=== PATIENT | male | born 2000 ===

== ENCOUNTER 2022-10-25 17:22 | Emergency (ER) | payer MEDICAID ==
[~2022-10-25] VITALS: Ht 180.3 cm; Wt 154.6 kg
[2022-10-25] MEDS ORDERED: INHALER IH (17:33)
[2022-10-25 17:49] LABS: COVID AG,FIA SOURCE NASAL SWAB
[2022-10-25 18:13] LABS: INFLUENZA TYPE A NEGATIVE FOR TYPE A (NEGATIVE); INFLUENZA TYPE B NEGATIVE FOR TYPE B (NEGATIVE)
[2022-10-25 21:59] VITALS: BP 146/79
[2022-10-25] MEDS ORDERED: ALBU8HFA IH (22:57)
[2022-10-25] MEDS ORDERED: AUD NEB (22:57)
[2022-10-25] MEDS ORDERED: GUAIFDM PO (22:57)
[2022-10-25] MEDS ORDERED: ALBUTEROL SULFATE HFA 90 MCG/PUFF 8 GM INHALER IH ONE (23:00)
== END 2022-10-25 23:11 | disposition home or self-care (01) ==
LOC: EMS 17:26
DX: J45.901 Unspecified asthma with (acute) exacerbation (principal); F41.9 Anxiety disorder, unspecified; Z20.822 Contact with and (suspected) exposure to COVID-19
CPT/HCPCS: 87804; 94640; 99283; J3535

== ENCOUNTER 2025-09-23 20:31 | Emergency (ER) | payer MEDICAID, OTHER ==
[~2025-09-23 20:31] MED LIST: ALBU18HF12 IH; ALBU2.5V39 NEB; GUAIFDM PO; INHALER IH
== END 2025-09-23 21:22 | disposition left against medical advice (07) ==
LOC: EMS 20:57
DX: R07.0 Pain in throat (principal); Z53.21 Procedure and treatment not carried out due to patient leaving prior to being seen by health care provider